=== PATIENT | female | born 1975 | race Caucasian/White ===

== ENCOUNTER → 2020-05-10 08:05 | Outpatient (CLI) | payer BC, SELFPAY ==
--- NOTE | 2020-05-10 08:12 | CT_ITS ---
STUDY: CT ABDOMEN AND PELVIS WITHOUT CONTRAST REASON FOR EXAM: Female, 44 years old. Lower abdomen pain, urinary urgency RADIATION DOSAGE (If Supplied By Facility): CTDIvol = ( 6.67 ) mGy, DLP = ( 314.89 ) mGycm TECHNIQUE: Transaxial images were obtained from the dome of the diaphragm to the symphysis pubis without oral contrast, and without intravenous contrast. Sagittal and coronal images were reconstructed. Individualized dose optimization techniques were used for this CT. COMPARISON: None. FINDINGS: The visualized lung bases are unremarkable. The visualized portions of the heart are within normal limits. Normal liver. Normal gallbladder and extrahepatic biliary system. Normal spleen. Normal pancreas. Normal bilateral adrenal glands. Normal right kidney. Normal left kidney. Normal visualized stomach. Normal small intestine. Normal colon. The appendix is visualized and appears normal. Normal abdominal aorta. Normal inferior vena cava. Normal retroperitoneum. Normal urinary bladder. Small benign appearing bilateral inguinal lymph nodes. Normal abdominal wall. Levoscoliosis. CT/Abdomen/Pelvis without Cont IMPRESSION: Levoscoliosis. No acute abnormality is seen. Electronically Signed: Kojo Moses, at 9:19 EST , Service support ,
== END ==
PROVIDERS: PCP Family Medicine; Referring Provider Urology; Visit Provider Urology
DX: R35.0 Frequency of micturition (principal); R39.15 Urgency of urination; R10.30 Lower abdominal pain, unspecified
CPT/HCPCS: 74176

== ENCOUNTER 2021-02-13 17:26 | Emergency (ER) | payer BC, SELFPAY ==
[2021-02-13 17:26] VITALS: BP 141/101; PULSE 106; RESP 18; TEMP 37.2; O2SAT 100; BMI 24.3
--- NOTE | 2021-02-13 17:31 | EKG12_ITS ---
Test Reason : CP Blood Pressure : / mmHG Vent. Rate : 086 BPM Atrial Rate : 086 BPM P-R Int : 124 ms QRS Dur : 084 ms QT Int : 370 ms P-R-T Axes : 026 035 -08 degrees QTc Int : 442 ms Sinus rhythm with frequent Premature ventricular complexes and Fusion complexes Otherwise normal ECG Confirmed by BRANDEE NOLAND, YESI ([id number]), editorial project manager DAVID TERRY ([id number]) on 02/15/2021 9:19:56 AM Referred By: BETTY/CRISTHIAN Confirmed By:YESI IRVIN MD
[2021-02-13 17:35] VITALS: BP 150/84; PULSE 87; RESP 18; O2SAT 97
[2021-02-13 17:47] LABS: Absolute Lymphocyte Count 1.78 X10^3/uL (0.83-4.51); Absolute Neutrophil Count 4.4 X10^3/uL (2.0-7.7); Basophil# 0.05 X10^3/uL; Basophil% 0.7 % (0-1); Eosinophil# 0.19 X10^3/uL; Eosinophils% 2.7 % (0-5); Hematocrit 44.4 % (37-47); Hemoglobin 14.6 g/dL (12.0-15.0); Lymphocyte # 1.78 X10^3/ul (0.83-4.51); Mean Corp Hgb Conc 32.9 g/dL (32-36); Mean Corpuscular Hgb 28.7 pg (27.0-32.0); Mean Corpuscular Volume 87.2 fL (81-99); Mean Platelet Vol. 11.6 fl (6.2-12.0); Monocyte# 0.68 X10^3/uL; Monocyte% 9.5 % (0-10); NRBC Flagged by Analyzer 0 % (0-5); Neutrophil # 4.41 X10^3/uL (2.7-7.7); Neutrophil % 61.8 % (47-70); POSITIVE MORPHOLOGY YES; Platelet Count 263 K/mm3 (150-450); RBC Distribution Width CV 12.6 % (11.6-14.6); RBC Distribution Width SD 40.4 fl (35.1-43.9); Red Blood Count 5.09 M/mm3 (4.2-5.4); White Blood Count 7.1 K/mm3 (4.4-11.0)
--- NOTE | 2021-02-13 17:49 | EDS_ITS ---
HPI History of Present Illness Chief Complaint: Chest Pain Narrative Narrative: 45-year-old female with no reported medical problems presenting with left-sided intermittent chest pain which she describes as sharp and fleeting. It will last a couple of seconds. This has been going on for weeks. She has no other symptoms with this. The pain does not radiate. Patient has not had fever, chills, cough. She denies any trauma. She states that otherwise she has been healthy. When she is not having the symptoms she is very active. She does state that her father had CO at age 40. Since the pain was coming on and off multiple times today she decided to get checked out in the ER. PFSH PFSH Medical History no medical history Home Medications Celexa 10 mg DAILY 02/13/21 [History Last Taken Unknown] Allergy/AdvReac Type Severity Reaction Status Date / Time No Known Allergies Allergy Verified 02/13/21 17:28 Social History Smoking Status: Never smoker ROS ROS ED Constitutional Constitutional ED: Denies chills or fever(s) Eyes Eyes: Denies blurry vision or change in vision ENT ENT ED: Denies rhinorrhea or sore throat Cardiovascular Cardiovascular: Reports chest pain; Denies palpitations Respiratory/Chest Respiratory/Chest: Denies cough or dyspnea Gastrointestinal Gastrointestinal: Denies abdominal pain, nausea or vomiting Genitourinary Genitourinary ED: Denies dysuria or hematuria Musculoskeletal Musculoskeletal: Denies arthralgias, back pain, myalgias or neck pain Integumentary Denies Abrasions or rash Neurologic Neurologic: Denies headache(s) or paresthesias EXAM Physical Exam Const Vital Signs: 02/13/21 17:26 02/13/21 17:35 02/13/21 18:31 Temperature 99.0 F Temperature Source Temporal Pulse Rate 106 H 87 77 Respiratory Rate 18 18 16 Blood Pressure 141/101 H 150/84 H 98/82 H Blood Pressure Mean 114 106 87 Pulse Ox 100 97 99 Oxygen Delivery Method Room Air Room Air Room Air 02/13/21 19:00 Temperature Temperature Source Pulse Rate 78 Respiratory Rate 20 H Blood Pressure 142/80 H Blood Pressure Mean 100 Pulse Ox 93 Oxygen Delivery Method Room Air Positive well developed General Appearance ED: well developed and NAD; Negative for pallor HEENT Reports moist mucous membranes normocephalic and atraumatic Eyes PERRL and EOMs intact bilaterally Resp normal respiratory effort and clear to auscultation bilaterally Auscultation: Negative for rales, rhonchi or wheezes Cardio regular rhythm Rate: tachycardic Extremity normal to inspection General Extremety ED: Negative for edema or tenderness General Extremity: Negative for edema Neuro oriented x3 Sensorium / Orientation: awake and alert Psych mental status grossly normal Skin General Skin Exam: Negative for jaundice or pallor Heart Score History: Slightly/Non-Suspicious ECG: Normal Age: </= 45 years Risk Factors: 1 or 2 Risk Factors Troponin: </= Normal Limit Score: 1 MDM MDM MDM Narrative Medical decision making narrative: 45-year-old female presenting with intermittent sharp left-sided chest pain. This is nonradiating. Patient has no cardiac history. Patient is not PERC negative because she was tachycardic when she arrived. I did obtain an EKG which is sinus rhythm with a ventricular rate of 86 bpm without signs of ischemic change. PVCs are noted. Chest x-ray on my interpretation shows no acute cardiopulmonary process on my interpretation. The radiologist does agree. Patient CBC is within normal limits. BMP is also normal. D-dimer is 0.47 and therefore negative. Patient has not had a return of her symptoms that she has been here. Will obtain delta troponin and if negative patient will be discharged home. Delta troponin is negative. Patient currently comfortable. I counseled patient she should follow-up with her PCP to ensure resolution. She is given return precautions. Impression: 1. Chest pain noncardiac Lab Data Attestation: I reviewed the patient's lab results. Labs: Laboratory Results - last 24 hr 02/13/21 02/13/21 02/13/21 17:32 17:32 17:32 WBC 7.1 RBC 5.09 Hgb 14.6 Hct 44.4 MCV 87.2 MCH 28.7 MCHC 32.9 RDW Std Deviation 40.4 RDW Coeff of Tali 12.6 Plt Count 263 MPV 11.6 Immature Gran % (Auto) 0.300 Neut % (Auto) 61.8 Lymph % (Auto) 25.0 Redwood % (Auto) 9.5 Eos % (Auto) 2.7 Baso % (Auto) 0.7 Absolute Neuts (auto) 4.4 Absolute Lymphs (auto) 1.78 Nucleated RBC % 0 Platelet Estimate ADEQUATE RBC Morphology NORM C+C D-Dimer Quant (PE/DVT) 0.47 Sodium 138 Potassium 3.8 Chloride 106 Carbon Dioxide 26.0 Anion Gap 6 BUN 14 Creatinine 0.94 Estim Creat Clear Calc 71.95 Est GFR (MDRD) Af Amer 81 Est GFR (MDRD) Non-Af 67 BUN/Creatinine Ratio 14.8 Glucose 125 H Calcium 9.4 Troponin I High Sens 5 02/13/21 17:40 WBC RBC Hgb Hct MCV MCH MCHC RDW Std Deviation RDW Coeff of Tali Plt Count MPV Immature Gran % (Auto) Neut % (Auto) Lymph % (Auto) Redwood % (Auto) Eos % (Auto) Baso % (Auto) Absolute Neuts (auto) Absolute Lymphs (auto) Nucleated RBC % Platelet Estimate RBC Morphology D-Dimer Quant (PE/DVT) Sodium Potassium Chloride Carbon Dioxide Anion Gap BUN Creatinine Estim Creat Clear Calc Est GFR (MDRD) Af Amer Est GFR (MDRD) Non-Af BUN/Creatinine Ratio Glucose Calcium Troponin I High Sens 6 Radiography Diagnostic Testing: Clinical Impression(s) from Imaging Studies Chest X-Ray 02/13/21 17:50 IMPRESSION: Normal x-ray examination of the chest. Electronically Signed: Shine Lopes DO at 18:21 EDT Tel [phone], Service support , Discharge Plan Triage Chief Complaint: Chest Pain ED Provider: Yamil Veloz Dx/Rx/DC Orders Instructions: ED Chest Pain, Noncardiac Prescriptions: No Action Celexa 10 mg DAILY RF: 0 Primary Care Provider: Care Physician,No Primary Referrals: Zaria Milner DO [STAFF PHYSICIAN] - As Needed Care Physician,No Primary [Primary Care Provider] - Disposition Disposition: Home, Self Care
--- NOTE | 2021-02-13 17:50 | RAD_ITS ---
STUDY: X-RAY CHEST REASON FOR EXAM: Female, 45 years old. Chest pain. TECHNIQUE: Single AP portable view of the chest. COMPARISON: None. FINDINGS: The lungs are clear and expanded. There is no demonstrated pleural abnormality. Normal size heart. Normal mediastinum and jyoti. Normal visualized pulmonary arteries. Normal visualized aortic arch and descending thoracic aorta. Normal visualized thoracic spine. Normal visualized ribs, clavicles, and shoulders. There is no demonstrated abnormality of the visualized soft tissue structures of the upper abdomen. RAD/Chest 1 View (Portable) IMPRESSION: Normal x-ray examination of the chest. Electronically Signed: Shine Lopes DO at 18:21 EDT Tel [phone], Service support ,
[2021-02-13 17:56] LABS: Differential Indicated SCAN CRITERIA MET
[2021-02-13 17:59] LABS: D-Dimer Quantitative (DVT/PE) 0.47 FEU/ug/m (0.27-0.49)
[2021-02-13 18:06] LABS: Anion Gap 6 (5-15); BUN 14 mg/dL (7-18); BUN/Creat Ratio 14.8 RATIO (10-20); Calcium,Total 9.4 mg/dL (8.5-10.1); Chloride 106 mmol/L (98-107); Creatinine, Serum 0.94 mg/dL (0.55-1.02); EST Glomerular Filtration Rate 67 mL/min (>60); Est Glom Filt Rate - Afr Amer 81 mL/min (>60); Estimated Creatinine Clearance 71.95 ml/min; Glucose 125 mg/dL (74-106); Potassium 3.8 mmol/L (3.5-5.1); Sodium Level 138 mmol/L (136-145); Troponin-I HS 5 pg/mL (3.0-54.0)
[2021-02-13 18:25] LABS: Platelet Estimate ADEQUATE (ADEQ); Red Cell Morphology NORM C+C NORMAL (NORM C&C)
[2021-02-13 18:31] VITALS: BP 98/82; PULSE 77; RESP 16; O2SAT 99
[2021-02-13 19:00] VITALS: BP 142/80; PULSE 78; RESP 20; O2SAT 93
--- NOTE | 2021-02-13 19:05 | CM.ED ---
SW Note Referral Source: Case Find Referral Reason: No PCP [facility] met with patient and patient reports that she has no primary care physican as her MD, Dr. Guan, retired. SW provided her with list of [facility] Physicans Directory. No other issues or concerns voiced. Plan: PCP list provided Veronica ASHLEY
[2021-02-13 20:12] LABS: Troponin-I HS 6 pg/mL (3.0-54.0)
[2021-02-13 20:25] VITALS: BP 116/100; PULSE 74; RESP 15; O2SAT 100
== END 2021-02-13 20:26 | disposition home or self-care (01) ==
PROVIDERS: Emergency Provider Student in an Organized Health Care Education/Training Program
DX: R07.89 Other chest pain (principal); I49.3 Ventricular premature depolarization; Z79.899 Other long term (current) drug therapy; Z82.49 Family history of ischemic heart disease and other diseases of the circulatory system
CPT/HCPCS: 36415; 71045; 80048; 84484; 85025; 85379; 93005; 99285; A4216

== ENCOUNTER → 2022-08-14 | Outpatient (CLI) | payer BC, SELFPAY ==
--- NOTE | 2022-08-14 14:12 | BI_ITS ---
MAMMOGRAPHY - UNILATERAL DIAGNOSTIC: RIGHT BREAST REASON FOR EXAM: Female, 46 years old. ABN MAMM RT BREAST PERTINENT HISTORY: Abnormal mammogram from outside institution TECHNIQUE: Digital examination. ML view along with spot compression CC and MLO views. CAD: CAD was performed on this study. COMPARISON: Outside study from 08/09/2022 FINDINGS: Breast Composition: The breasts are heterogeneously dense, which may obscure small masses. There is persistence of the irregular asymmetry in the upper outer quadrant of the right breast. There is also an asymmetry in the lower inner quadrant of the right breast. Both need further evaluation with ultrasound. BI/DIAG MAMM W/CAD, UNILAT IMPRESSION: Further ultrasonographic evaluation recommended, as described above. Recall Side: Right Breast ASSESSMENT CATEGORY: BIRADS Category 0: Incomplete. Need additional imaging evaluation. A letter regarding these results will be sent to the patient by the facility within 30 days. FOLLOW-UP RECOMMENDATION: Ultrasound recommended. (I) Approximately 10% of breast cancers are not detected by mammography. A normal mammogram should not delay biopsy of a clinically suspicious abnormality. Electronically Signed: Diego Toro MD at 15:21 EDT ,
--- NOTE | 2022-08-14 14:12 | US_ITS ---
STUDY: ULTRASOUND BREAST - RIGHT REASON FOR EXAM: Female, 46 years old. Pain, abnormal mammogram TECHNIQUE: Axial and longitudinal images of the RIGHT breast were performed with a high resolution ultrasound transducer. # OF IMAGES: 70 COMPARISON: Mammogram from earlier today FINDINGS: RIGHT Breast: Ultrasound of the upper outer and lower inner quadrants of the right breast. Dense fibroglandular tissue is noted. There is no suspicious shadowing solid lesion, architectural distortion, or clustered shadowing calcifications. No suspicious axillary adenopathy. US/Breast Limited Unilateral IMPRESSION: Dense fibroglandular tissue, no suspicious underlying abnormalities. ASSESSMENT CATEGORY: BIRADS Category 2: Benign. A letter regarding these results will be sent to the patient by the facility within 30 days. Electronically Signed: Diego Toro MD at 7:44 EDT ,
== END | disposition home or self-care (01) ==
PROVIDERS: PCP Family Medicine; Referring Provider Obstetrics & Gynecology; Visit Provider Obstetrics & Gynecology
DX: R92.8 Other abnormal and inconclusive findings on diagnostic imaging of breast (principal)
CPT/HCPCS: 76642; 77065